=== PATIENT | female | born 1955 | race Two or more races ===

== ENCOUNTER 2021-06-08 20:12 | Emergency (ER) | payer OTHER ==
[~2021-06-08] VITALS: Ht 152.4 cm; Wt 79.4 kg
[2021-06-08] MEDS ORDERED: TOPROL XL25 M1 PO ×2 (20:24→20:26)
[2021-06-08] MEDS ORDERED: PLAQUENIL PO (20:24)
[2021-06-08] MEDS ORDERED: COZAAR25 MG PO (20:25)
[2021-06-08] MEDS ORDERED: GABAPENTIN400 MG PO (20:25)
[2021-06-08] MEDS ORDERED: NABUMETONE500 MG PO (20:26)
[2021-06-08] MEDS ORDERED: RELAGESIC 5001 EACH PO (20:26)
[2021-06-08] MEDS ORDERED: PROTONIX40 MG PO (20:27)
[2021-06-08] MEDS ORDERED: SYNTHROID50 MCG PO (20:27)
[2021-06-08] MEDS ORDERED: NORFLEX100MG PO (22:14)
== END 2021-06-08 22:20 | disposition home or self-care (01) ==
LOC: ER 20:12
DX: S52.92XA Unspecified fracture of left forearm, initial encounter for closed fracture (principal); S06.0X9A Concussion with loss of consciousness of unspecified duration, initial encounter; I10 Essential (primary) hypertension; X58.XXXA Exposure to other specified factors, initial encounter; Y92.89 Other specified places as the place of occurrence of the external cause

== ENCOUNTER 2022-11-20 05:16 | Emergency (ER) | payer OTHER ==
[~2022-11-20] VITALS: Ht 152.4 cm; Wt 86.2 kg
[~2022-11-20 05:16] MED LIST: COZAAR25 MG PO; GABAPENTIN400 MG PO; NABUMETONE500 MG PO; NORFLEX100MG PO; PLAQUENIL PO; PROTONIX40 MG PO; RELAGESIC 5001 EACH PO; SYNTHROID50 MCG PO; TOPROL XL25 M1 PO
[2022-11-20] MEDS ORDERED: PEPCID AC20 MG PO (11:39)
== END 2022-11-20 13:30 | disposition home or self-care (01) ==
LOC: ER 05:16
DX: M94.0 Chondrocostal junction syndrome [Tietze] (principal); I10 Essential (primary) hypertension; M19.90 Unspecified osteoarthritis, unspecified site

== ENCOUNTER 2023-10-17 21:12 | Emergency (ER) | payer OTHER ==
[~2023-10-17] VITALS: Ht 152.4 cm; Wt 83.9 kg
[~2023-10-17 21:12] MED LIST changes: +PEPCID AC20 MG PO
[2023-10-18] MEDS ORDERED: PROMETHAZINE HCL 50 MG/ML AMPUL IM STA (01:07)
[2023-10-18] MEDS ORDERED: HYOSCYAMINE SULFATE 0.125 MG TAB.SUBL SL STA (01:07)
[2023-10-18] MEDS ORDERED: FAMOTIDINE/PF 20 MG/2 ML VIAL IV PUSH STA (01:08)
[2023-10-18] MEDS ORDERED: LACTOBACILLUS ACIDOPHILUS 1 CAP CAP PO STA (01:08)
[2023-10-18] MEDS ORDERED: 0.9 % SODIUM CHLORIDE 1,000 ML IV ONE (01:15)
[2023-10-18 01:45] LABS: HEMATOCRIT 42.9 % (36.0-45.00); HEMOGLOBIN 14.9 g/dL (12.0-15.00); MEAN CELL VOLUME 93.9 fL (80.00-100.00); MEAN CORPUSCULAR HEMOGLOBIN 32.6 pg (27.00-32.0); MEAN CORPUSCULAR HGB CONC 34.7 g/dl (32.0-36.0); PLATELET COUNT 310 K/uL (150-450); RED BLOOD COUNT 4.56 M/uL (4.00-6.00); RED CELL DISTRIBUTION WIDTH 14.3 % (11.5-14.5)
[2023-10-18 01:57] LABS: CALCIUM 8.9 mg/dL (8.5-10.1); CREATININE SERUM 0.79 mg/dL (0.55-1.02); GFR 72.81; POTASSIUM 4.08 mEq/L (3.5-5.1)
[2023-10-18] MEDS ORDERED: ONDANSETRON HCL 2 MG/ML VIAL IV ONE (04:30)
[2023-10-18 04:33] LABS: PH,URINE 5.5 (5.0-8.0); URINE APPEARANCE Clear; URINE BILIRRUBIN Negative (NEGATIVE); URINE BLOOD Negative; URINE COLOR Yellow; URINE GLUCOSE Negative (NEGATIVE); URINE LEUKOCYTE Trace; URINE NITRATE Negative; URINE PROTEIN Negative (NEGATIVE); URINE UROBILINOGEN 0.2 E.U./dl
[2023-10-18 04:37] LABS: URINE EPITHELIAL CELLS 16.6 uL (0.0-38.8); URINE WBC 18.2 uL (0.0-23.2)
[2023-10-18 06:09] LABS: HEMOGLOBIN 14.2 g/dL (12.0-15.00); MEAN CELL VOLUME 95.7 fL (80.00-100.00); MEAN CORPUSCULAR HEMOGLOBIN 33.2 pg (27.00-32.0); MEAN CORPUSCULAR HGB CONC 34.7 g/dl (32.0-36.0); PLATELET COUNT 287 K/uL (150-450); RED BLOOD COUNT 4.29 M/uL (4.00-6.00); RED CELL DISTRIBUTION WIDTH 14.2 % (11.5-14.5)
[2023-10-18] MEDS ORDERED: PEPCID40 MG PO (06:45)
[2023-10-18] MEDS ORDERED: LEVSIN/SL0.125 MG SL (06:45)
[2023-10-18] MEDS ORDERED: INTESTINEX680 M2 PO (06:45)
[2023-10-18] MEDS ORDERED: ONDANSETRON ODT8 MG PO (06:45)
== END 2023-10-18 07:15 ==
LOC: ER 21:12
PROVIDERS: General Practice
DX: R11.10 Vomiting, unspecified (principal); R19.7 Diarrhea, unspecified; K57.32 Diverticulitis of large intestine without perforation or abscess without bleeding; I10 Essential (primary) hypertension; E11.9 Type 2 diabetes mellitus without complications; R10.84 Generalized abdominal pain
CPT/HCPCS: 36415; 74176; 96365; 96366; 96372; 99284; J2250; J2405; J7030